=== PATIENT | female | born 1990 | race Caucasian/White ===

== ENCOUNTER 2016-08-03 20:42 | Inpatient (IN) | payer OTHER ==
[~2016-08-03] VITALS: Ht 162.6 cm; Wt 77.3 kg
[~2016-08-03 20:42] MED LIST: PRENTAB26 PO
[2016-08-03] MEDS ORDERED: LACTATED RINGER'S 1000ML 1,000 ML IV PRN (20:55)
[2016-08-03] MEDS ORDERED: LACTATED RINGER'S 1000ML 1,000 ML IV SCH ×2 (20:55→22:51)
[2016-08-03] MEDS ORDERED: OXYTOCIN 30 UNITS/500ML NSS IV ONE (21:25)
[2016-08-03 21:28] LABS: HEMATOCRIT 37.1 % (37-47); MEAN CELL VOLUME 84.5 fL (80-100); MEAN CORPUSCULAR HEMOGLOBIN 28.2 pg (25-34); MEAN CORPUSCULAR HGB CONC 33.4 g/dl (32-36); MEAN PLATELET VOLUME 10.9 fL (7.4-10.4); PLATELET COUNT 266 K/uL (130-400); RED BLOOD COUNT 4.39 M/uL (4.2-5.4); WHITE BLOOD COUNT 13.89 K/uL (4.8-10.8)
[2016-08-03] MEDS ORDERED: BUTORPHANOL TARTRATE 1 MG/ML VIAL ONE (22:02)
[2016-08-03] MEDS ORDERED: IBUPROFEN 600 MG TAB ONE (22:45)
[2016-08-03] MEDS ORDERED: BUTORPHANOL TARTRATE 1 MG/ML VIAL IV STA (22:57)
[2016-08-03] MEDS ORDERED: OXYTOCIN 30 UNITS/500ML NSS IV PRN (23:00)
[2016-08-03] MEDS ORDERED: HYDROCORTISONE ACETATE 25 MG SUPP PR PRN (23:00)
[2016-08-03] MEDS ORDERED: SUPERCREAM 0.870 % 15GM JAR EXT PRN (23:00)
[2016-08-03] MEDS ORDERED: LANOLIN OINT EXT PRN ×2 (23:00)
[2016-08-03] MEDS ORDERED: BENZOCAINE 20% AER SPR 82.5 GM CAN EXT PRN (23:00)
[2016-08-03] MEDS ORDERED: OXYCODONE/ACETAMINOPHEN 5-325 TAB PO PRN (23:00)
[2016-08-03] MEDS ORDERED: ACETAMINOPHEN 325 MG TAB PO PRN (23:00)
[2016-08-03] MEDS ORDERED: ASCO100T (23:53)
[2016-08-03] MEDS ORDERED: CHOL1000 PO (23:53)
[2016-08-03 23:56] VITALS: Ht 162.6 cm; Wt 77.3 kg
[2016-08-04] VITALS (7 sets, daily range): BP systolic 103–135; BP diastolic 57–77; PULSE 53–86; TEMP 36.2–36.8; O2SAT 97–98
--- NOTE | 2016-08-04 00:01 | DELIVERY SUMMARY ---
DATE OF OPERATION: 08/03/2016 TIME OF DELIVERY OF BABY: 2156. TIME OF DELIVERY OF PLACENTA: 2226. DETAILS OF ADMISSION AND DELIVERY: The patient is a 26-year-old G3, P 1-0-0-1, at 40 weeks and 2 days of gestation, who presented to labor and delivery in active labor at 7 cm, 80%, 0 station, with bulging membranes. She progressed to full dilatation very quickly and desired to push. See below for details of delivery. Her has been complicated by (1) history of depression, no current issues, (2) hepatitis C positive, Chronic hepatitis C carrier. (3) tobacco use. (4) Abnormal findings on screening, increased risk of Down syndrome from quad screening. She had MFM referral and normal ultrasound. She declined more testing. Her GBS was negative. Her contractions started about an hour ago before she presented to L&D. She denies LOF or VB. She reported good movements. Upon admission to labor and delivery, heart rate was 130s, category 1, she was having contractions every 2-3 minutes. She progressed to fully dilatation and desired to push. There were bulging membranes which were ruptured and clear fluid was obtained. Right after that, the patient pushed once and delivered the head over an intact perineum. Shoulders were delivered with minimal traction. Baby was handed off to the mother where mouth and nose were suctioned. Cord was clamped x2 and cut, it was a 3-vessel cord, and then cord blood was obtained. Vagina and perineum were checked for lacerations. There was a very small 1 cm first-degree laceration on the right labia minor, which was not bleeding, the patient declined repair. Rest of the vagina and perineum were intact. The patient was very painful at that point, desired pain medication. She was given 2 grams of Stadol IV for pain control. Placenta was attached for about 30 minutes, and at 10:27 p.m., placenta was found to be in the vagina, delivered spontaneously, intact and complete. Uterus was explored and found to be some pieces of membranes in the lower uterine segment, which were removed manually without difficulty and then the rest of the uterus was empty. Lower segment was cleared off all clots and debris. Fundus was firm. EBL was 300. Mother and baby tolerated the procedure well. Baby was a viable male infant, Apgars 9/9, weight is pending. No complications happened. I was present during whole procedure. I attest to the content of the Intraoperative Record and any orders documented therein. Any exceptions are noted below. MTDD
[2016-08-04] MEDS: IBUPROFEN 600 MG TAB PO PRN ×3 (06:37→19:38)
[2016-08-04 07:06] LABS: HEMATOCRIT 33.2 % (37-47)
[2016-08-04] MEDS: PRENATAL VITAMIN TAB PO SCH (08:56)
[2016-08-04] MEDS: DOCUSATE SODIUM 100 MG CAP PO SCH ×2 (08:56→19:37)
[2016-08-04] MEDS: FERROUS SULFATE 325 MG TAB PO SCH (08:56)
[2016-08-04] MEDS ORDERED: MEASLES, MUMPS & RUBELLA VIRUS VIAL SQ. ONE (09:00)
[2016-08-04] MEDS ORDERED: DIPHTHERIA/TETANUS/PERTUSSIS 0.5 ML SYR/VIAL IM. ONE (09:00)
--- NOTE | 2016-08-04 09:05 | OB/GYN Progress Note ---
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 Patient is seen and examined. She feels well, no complaints. Ambulating without dizziness Voiding without difficulty Tolerating regular diet with out N&V Bleeding is minimal No fever/ chills/ CP/ SOB/ N&V/ Leg pain Breast feeding without problems Date Time Temp Pulse Resp B/P Pulse Ox O2 Delivery O2 Flow Rate FiO2 08/04/16 08:10 98 Room Air 08/04/16 08:10 36.8 78 16 120/65 98 Room Air 08/04/16 04:45 36.8 85 18 103/57 Room Air 08/04/16 00:45 36.2 73 17 135/77 Room Air 08/04/16 00:45 Room Air Last 24 Hours Test 08/03/16 21:10 08/04/16 06:34 White Blood Count 13.89 K/uL Red Blood Count 4.39 M/uL Hemoglobin 12.4 g/dL 11.3 g/dL Hematocrit 37.1 % 33.2 % Mean Corpuscular Volume 84.5 fL Mean Corpuscular Hemoglobin 28.2 pg Mean Corpuscular Hemoglobin Concent 33.4 g/dl RDW Standard Deviation 44.6 fL RDW Coefficient of Variation 14.3 % Platelet Count 266 K/uL Mean Platelet Volume 10.9 fL PE: General: Alert, orientedx3, NAD Abd: soft, NT, fundus firm, below Umbilicus Perineum intact, Lochia rubra minimal Ext; NT, no edema AP: 26 yo s/p , ppd# 1 VSS Afebrile doing well Continue routine care All questions were answered D/C home in am
[2016-08-04] MEDS ORDERED: BISACODYL 5 MG TABEC PO SCH (20:00)
[2016-08-05 06:58] LABS: HEMATOCRIT 33.3 % (37-47); MEAN CELL VOLUME 84.3 fL (80-100); MEAN CORPUSCULAR HEMOGLOBIN 27.6 pg (25-34); MEAN CORPUSCULAR HGB CONC 32.7 g/dl (32-36); PLATELET COUNT 266 K/uL (130-400); RED BLOOD COUNT 3.95 M/uL (4.2-5.4); WHITE BLOOD COUNT 11.48 K/uL (4.8-10.8)
[2016-08-05] MEDS ORDERED: BISACODYL 10 MG SUPP PR PRN (07:00)
[2016-08-05 07:30] VITALS: BP 121/78; PULSE 61; TEMP 36.7
[2016-08-05] MEDS: PRENATAL VITAMIN TAB PO SCH (07:35)
[2016-08-05] MEDS: DOCUSATE SODIUM 100 MG CAP PO SCH (07:35)
[2016-08-05] MEDS: FERROUS SULFATE 325 MG TAB PO SCH (07:35)
[2016-08-05] MEDS: IBUPROFEN 600 MG TAB PO PRN (07:35)
[2016-08-05 08:05] VITALS: BP_DIAS 78; PULSE 61; TEMP 36.7
--- NOTE | 2016-08-05 08:39 | OB/GYN Progress Note ---
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 Subjective conversation w/ patient, physical exam Ambulation: ambulating normally Voiding: no voiding problems Passing Gas: Yes Diet Tolerance: Regular Diet Lochia: Moderate Feeding Type: Breast Feeding Review of Systems Constitutional: No chills, No fatigue, No fever, No problem reported, No sweats , No weakness, No weight loss Respiratory: No cough, No dyspnea at rest, No dyspnea on exertion, No hemoptysis, No problem reported, No shortness of breath, No sputum, No wheezing Cardiac: No PND, No chest pain, No claudication, No edema, No orthopnea, No palpitations, No problem reported Breast: No breast lump, No breast pain, No change in shape, No nipple discharge , No problem reported, No see HPI Abdomen: No GI bleeding, No constipation, No diarrhea, No nausea, No pain, No problem reported, No vomiting Female : No abnormal vaginal bleeding, No dysuria, No hematuria, No incontinence, No problem reported, No see HPI, No urinary frequency, No vaginal discharge VD day #2 pt doing well disch home with instructions Objective Vital Signs Date Time Temp Pulse Resp B/P Pulse Ox O2 Delivery O2 Flow Rate FiO2 08/05/16 07:30 36.7 61 20 121/78 Room Air 08/04/16 23:40 98 Room Air 08/04/16 23:40 36.7 53 18 120/67 98 Room Air 08/04/16 19:30 36.8 76 16 115/75 Room Air 08/04/16 15:30 36.7 82 18 116/65 97 Room Air 08/04/16 15:30 97 Room Air 08/04/16 11:15 36.8 86 18 112/65 97 Room Air 08/04/16 11:15 97 Room Air Laboratory Results Last 24 Hours Test 08/05/16 06:01 White Blood Count 11.48 K/uL Red Blood Count 3.95 M/uL Hemoglobin 10.9 g/dL Hematocrit 33.3 % Mean Corpuscular Volume 84.3 fL Mean Corpuscular Hemoglobin 27.6 pg Mean Corpuscular Hemoglobin Concent 32.7 g/dl RDW Standard Deviation 44.4 fL RDW Coefficient of Variation 14.5 % Platelet Count 266 K/uL Mean Platelet Volume 11.0 fL
[2016-08-05] MEDS ORDERED: MTR600X PO (08:41)
--- NOTE | 2016-08-05 08:42 | Discharge Instructions ---
Discharge Instructions Admission Reason for Admission: Check Labor Discharge Discharge Diagnosis / Problem: post Discharge Goals Goal(s): Continuing OB care Activity Recommendations Activity Limitations: as noted below Lifting Limitations: gradually increase as tolerated Exercise/Sports Limitations: until after follow-up appointment May Resume Sexual Activity: after follow-up appointment Driving or Machine Use: ACTIVITY RECOMMENDATIONS: * Gradual return to full activity over the next 2-3 weeks. * No lifting - nothing heavier than baby over the next 2-3 weeks. * Do not engage in vigorous exercise, sexual activity or sports until cleared by your physician. * Do not drive or operate any motorized equipment until cleared by your physician. * You may shower/bathe daily. BREAST CARE: If you are not breast feeding: * Wear a supportive bra 24 hours a day for one to two weeks. * Avoid stimulating your breasts and nipples as much as possible during the first few weeks after delivery. * When taking a shower, have the warm water hit your back, not breasts. * When your breasts feel full, apply ice packs. Usually three to four times a day helps ease the discomfort. * Take a mild pain medication (Tylenol/Motrin) when you are uncomfortable. If breast feeding: * Use breast milk to lubricate nipples. Lansinoh cream may be used for sore nipples. You do not need to remove cream prior to breast feeding. If using a different brand of cream, check the label for directions regarding removal of cream prior to nursing. * Wear a supportive bra. * If having problems with breasts or breast feeding, call a alliances consultant or your health care provider. EPISIOTOMY CARE: After delivery, if you have an episiotomy (stitches), the following steps will ease discomfort and aid healing. * For the first 24 hours after delivery, place ice packs next to your episiotomy to help reduce swelling. * After the first 24 hour-period, sitz baths, either portable or in the tub, are suggested. A shower with a shower arm sprayed over the episiotomy may be comforting. * Maia care should be done after each voiding and bowel movement. Squirt warm water from a plastic bottle over the perineum (region of the body between the anus and urinary opening) and pat dry. * Use Dermoplast to ease discomfort. Shake container. [place] directly over the episiotomy. * Place a Tucks on a clean sanitary pad next to your episiotomy. OVER THE COUNTER MEDICATION: * For discomfort or pain, you may use Acetaminophen (Tylenol), Ibuprofen (Advil ), or Naproxen (Aleve) following the package directions. * For constipation you may use Colace following the package directions. SPECIAL CARE INSTRUCTIONS: When you are discharged from the hospital, it is important for you to follow the instructions listed below: * During the first week at home, you should be able to care for yourself and your baby. In addition, the usual light household activities are encouraged. * Limit your activities to the way you feel. Do not try to clean the house or move furniture. Be sensible. * If you actively engage in sports and have done so up until the time of your delivery, you may resume these activities as soon as you feel able. This may take up to one month or even longer. Use good judgment. * Continue to take your vitamins for at least six weeks after the of your baby. * Your diet need not be limited unless you were on a special diet before your delivery. Breast-feeding mothers need around 2500 calories per day and at least 64-80 ounces of fluid per day (8 to 10 glasses). * You should eat foods from the four major food groups. Crash diets or fad diets are to be avoided. Eating lean meats, fresh fruits and vegetables, low-fat dairy products, high fiber foods and a regular exercise program, will help you get back to your pre- weight without putting your health at risk. * Constipation is sometimes a problem after delivery. Take a mild laxative as needed. If breast feeding, Milk of Magnesia is acceptable to use. You may use a suppository or Fleets enema if no episiotomy. * A daily shower or tub bath is suggested. Be sure to thoroughly and gently dry the perineum. * A bloody vaginal discharge will usually continue until around four weeks post . A small amount of bleeding may continue for as long as six weeks. Vaginal discharge changes from the bright red bleeding after delivery to pink then brownish and finally yellowish-pink before becoming white and disappearing. * Bleeding may increase with activity. Your first period may come in 4-8 weeks. If you are breast feeding, your period may be delayed even longer. * [place] (sex) can begin whenever both you and your partner feel comfortable and do not have any form of genital infection. It is recommended that you wait until after your return appointment and discuss with your physician. If you have questions, please talk to your health care practitioner. A condom should be used to prevent infection and . * Foreplay, gentle intercourse and lubrication is very important the first several times to prevent pain. A water-based lubricant such as K-Y jelly or Astroglide may be used. * Tampons may be used six weeks after delivery. * Douching should be avoided for 6 weeks after delivery. * If you have RH negative blood and your baby is RH positive, you will receive RHOGAM by injection prior to discharge. The nurse will give you a card to keep with you that has the date and place that you received RHOGAM after delivery. * During your care, you had a Rubella screen done to check for the presence of rubella antibodies in your blood. If your test was negative, you will receive a Rubella vaccine prior to discharge. This vaccine may cause a fever, soreness at the injection site and flu-like symptoms. If these symptoms persist, notify your health care practitioner. is not advised for three months after a Rubella vaccine. There is a higher chance of having a baby with defects if conceived within three months of getting the vaccine. * If you were discharged 24 hours from delivery or before 48 hours: Visiting nurses will come to your home 48 hours after discharge to assess you and your baby. The visiting nurse will meet with you while you are in the hospital to arrange a time and get directions to your home. * Verbalizes understanding of car seat law as reviewed with patient nursing. * Car Seat hand-out given and reviewed with patient by nursing. * Shaken baby information reviewed with patient by nursing. Call you doctor if: * Heavy bleeding (saturating several pads an hour) or passing clots the size of your fist. * A fever >101 degrees F (38.3 degrees C) on two occasions four hours apart and/or chills. * Unusual pain in the pelvic or vaginal areas. * "Baby Blues" lasting longer than two weeks. If you have any questions or concerns, call your health care practitioner at . FOLLOW-UP VISIT: * Please call the office at to schedule a 6 week examination. It is important you keep this appointment. * It is important for you to make arrangements for either yearly or twice yearly check-ups thereafter. . Current Hospital Diet Patient's current hospital diet: Regular OB Diet Discharge Diet Recommended Diet: Regular Diet Pending Studies Studies pending at discharge: no Medical Emergencies . Who to Call and When: Medical Emergencies: If at any time you feel your situation is an emergency, please call 911 immediately. . Non-Emergent Contact Non-Emergency issues call your: Specialist Call Non-Emergent contact if: you have a fever, your pain is not controlled, wound has increased drainage . . "Provider Documentation" section prepared by Dhruv He. VTE Core Measure Inpt VTE Proph given/why not?: Treatment not indicated
== END 2016-08-05 11:55 | disposition home or self-care (01) | DRG 774 ==
LOC: C.OPB 20:42 → C.LD 20:42 → C.OPB 21:00 → C.OBG 08-04 00:57
PROVIDERS: ADMIT Obstetrics & Gynecology; ATTEND Obstetrics & Gynecology
PROC: 10E0XZZ Delivery of Products of Conception, External Approach (ICD-10-PCS; principal; 2016-08-03)
DX: O70.0 First degree perineal laceration during delivery (principal); O98.413 Viral hepatitis complicating pregnancy, third trimester; O99.333 Smoking (tobacco) complicating pregnancy, third trimester; B18.2 Chronic viral hepatitis C; Z3A.40 40 weeks gestation of pregnancy; Z37.0 Single live birth

== ENCOUNTER 2020-06-28 18:40 | Observation (INO) ==
[2020-06-28] MEDS ORDERED: ONDANSETRON INJ 2 MG/ML 2 ML VIAL IV STA (19:09)
[2020-06-28] MEDS ORDERED: ceFAZolin 1000MG 1,000 MG/7.5 ML SYR IV ONE (19:12)
[2020-06-28] MEDS ORDERED: SODIUM CHLORIDE 0.9% 1000ML 1,000 ML IV SCH (19:15)
--- NOTE | 2020-06-28 19:25 | History & Physical Report ---
Date of Service June 28, 2020 Assessment & Plan (1) Hematoma: On clinical examination, this is consistent with hematoma, likely with still active bleeding. Discussed return to operating room for evacuation of hematoma of left breast. Discussed possible risks including bleeding, infecti on, poor wound healing, nipple necrosis, further surgery. Consent obtained. We will plan to observe overnight postoperatively. Did discuss possibility of transfusion depending on postoperative H&H. History of Present Illness Primary Care Provider: Alden Hilario contacted the answering service this evening with a complaint of rapidly enlarging left breast, increased drainage and pain from the left breast, and lightheadedness. She is about 7 hours status post bilateral reduction mamm oplasty. She was seen by Tammy at the time of discharge, noted to have viable nipple areolar complexes. Allergies Allergy/AdvReac Type Severity Reaction Status Date / Time nut - unspecified Allergy Severe ANAPHYLAXIS Verified 06/28/20 06:20 shellfish derived Allergy Severe ANAPHYLAXIS Verified 06/28/20 06:20 animal dander Allergy Mild itchy eyes Verified 06/28/20 06:20 pollen extracts Allergy Mild itchy eyes Verified 06/28/20 06:20 ragweed pollen Allergy Mild itchy eyes Verified 06/28/20 06:20 Home Medications Medication Instructions Recorded Confirmed Type ondansetron HCl [Zofran] 4 mg PO Q6H PRN 3 Days #12 tab 06/28/20 Rx tramadol 100 mg tablet 100 mg PO Q6H PRN #14 tab 06/28/20 Rx Past Med/Surg History Medical History Asthma A CHILD-NO INHALERS Chronic back pain History of seasonal allergies Surgical History Hx of breast surgery BILAT 2012 Family History Other Breast cancer Social History (Updated 04/12/20 @ 10:22 by Tommy Guaman) Smoking Status: Never smoker Cigarettes Per Day: USED TO TRY SMOKE 4-6 CIGS A DAY X 15 YRS; Second Hand Exposure: Yes (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); Hx Alcohol Use: Yes Alcohol type: beer, wine and hard liquor Alcohol Intake Frequency: 2-3 x/Week Hx Substance Use: No Preferred Language: Romansh Communication Ability: Effective 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 Drain has drained about 60 cc over the last few minutes, bright red Results & Data Results & Data ([facility]) Vital Signs (Past 12 Hours) Vital Signs Temp Pulse Resp BP Pulse Ox 06/28/20 18:42 97.7 F 58 L 16 127/70 100 Laboratory studies not available yet
--- NOTE | 2020-06-28 19:35 | Emergency Department Note ---
Impression & Plan Postoperative hemorrhage ED Provider Note INFORMANT: Patient ED PROVIDER(S): Bartolo Romero MD CHIEF COMPLAINT: Postoperative bleeding PLAN: Disposition: Taken directly to the OR for operative management Condition: Good MEDICAL DECISION MAKING: Patient presented back to emergency department because of postoperative bleeding. Her left breast was significantly swollen and she had a significant amount of blood drainage from her SHELLEY drain. Her surgeon, Dr. Patricio, met her in the emergency department. We discussed her presentation and findings. She evaluated patient and felt operative exploration and hemorrhage control would be necessary. The patient was in agreement. I did treat her with normal saline, Dilaudid, and Zofran for symptom control. Blood work was obtained. IV Ancef was given. CBC showed a moderate leukocytosis. Her H&H was mildly low. Chemistry panel unremarkable. Triage Nursing notes reviewed and agree them. Prior medical records reviewed regarding her operative report. Vital Signs: reviewed and remarkable for no significant abnormalities Differential diagnosis: Venous bleeding, arterial bleeding, foreign body, dehiscence, infection, soft tissue injury, as well as other pathologies. Diagnostics interpreted by me: Cardiac Monitoring: Cardiac monitoring ordered by me: The patient was placed on continuous cardiac monitoring and observed. It revealed a normal sinus rhythm at 61 beats per minute without ectopy or evidence of dysrhythmia. Imaging studies: Deferred Consultation(s): Dr. Patricio, plastic surgery HPI: The patient is a 30 year old female who presents to the Emergency Room with complaints of postoperative bleeding. This started this afternoon and is from the left breast. The patient also notes the following associated symptoms, feeling lightheaded and dizzy when standing. The patient has found no relieving factors. Current pain is rated as 6/10. Patient had breast reduction done by Dr. Patricio today. She noted that she initially had 20 cc in her SHELLEY drain, then had 30 the next time she drained it, and then on presentation to the emergency department there was 60 cc present. Prior to arrival to ER she did contact Dr. Patricio's nurse and was directed to the ER for further management. She does note a mild sore throat from intubation otherwise is without complaints. Pt denies LOC, headache, fevers, chills, diaphoresis, visual changes, neck pain, chest pain, breathing difficulties, nausea, vomiting, abdominal pain, back pain, numbness, weakness, lymphadenopathy, rash, or other complaints. ROS: See above HPI for pertinent positives & negatives. A total of 10 systems reviewed and were otherwise negative. PAST MEDICAL HISTORY:See Below, PAST SURGICAL HISTORY:See Below, FAMILY HISTORY:See Below SOCIAL HISTORY:See Below, HOME MEDICATIONS:See Below ALLERGIES:See Below VITALS:See Below PHYSICAL EXAMINATION: GENERAL: Awake, alert, uncomfortable-appearing, in no distress HENT: Normocephalic, atraumatic. Oropharynx unremarkable. EYES: Normal conjunctiva. Sclera non-icteric. NECK: Inspection normal. Non-tender. Supple. No nuchal rigidity. FROM. No masses. RESPIRATORY: Clear to auscultation. No wheezes. No rales. Normal respiratory effort. CARDIAC: Normal rate. Normal rhythm. No murmurs. No rubs. Extremities warm and well perfused. Pulses equal. No JVD. GI: Soft, non-distended. No tenderness to palpation. No rebound or guarding. No masses. RECTAL: Deferred. MUSCULOSKELETAL: Atraumatic. Chest examination reveals bilateral breast tenderness. Left breast is much larger than the right. There is a SHELLEY drain present and there is gross blood in the bottle. 60 mL measured. The back is symmetrical on inspection without obvious abnormality. There is no CVA tenderness to palpation. No joint edema. LOWER EXTREMITIES: Calves are equal size bilaterally and non-tender. No edema. No discoloration. NEURO: Normal sensorium. No sensory or motor deficits noted. SKIN: No rash or jaundice noted. Bartolo Romero MD Past Med/Surg History Medical History (Updated 06/28/20 @ 20:50 by Dominic Betancourt MD) Asthma A CHILD-NO INHALERS Chronic back pain Hepatitis C History of seasonal allergies Surgical History Hx of breast surgery BILAT 2012 Family History Other Breast cancer Social History (Updated 04/12/20 @ 10:22 by Tommy Guaman) Smoking Status: Never smoker Cigarettes Per Day: USED TO TRY SMOKE 4-6 CIGS A DAY X 15 YRS; Second Hand Exposure: Yes (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); Hx Alcohol Use: Yes Alcohol type: beer, wine and hard liquor Alcohol Intake Frequency: 2-3 x/Week Hx Substance Use: No Preferred Language: Chinese Communication Ability: Effective Electronics Worker Required: No Beliefs That Will Affect Care: None Current Living Situation: Significant Other Feels Safe at Home: Yes Sunscreen Use: Yes Assistive Devices: Glasses Allergies Allergies Allergy/AdvReac Type Severity Reaction Status Date / Time nut - unspecified Allergy Severe ANAPHYLAXIS Verified 06/28/20 06:20 shellfish derived Allergy Severe ANAPHYLAXIS Verified 06/28/20 06:20 animal dander Allergy Mild itchy eyes Verified 06/28/20 06:20 pollen extracts Allergy Mild itchy eyes Verified 06/28/20 06:20 ragweed pollen Allergy Mild itchy eyes Verified 06/28/20 06:20 Home Meds Previous Rx's Medication Instructions Recorded ondansetron HCl [Zofran] 4 mg PO Q6H PRN 3 Days #12 tab 06/28/20 tramadol 100 mg tablet 100 mg PO Q6H PRN #14 tab 06/28/20 Results & Data (ED) Vital Signs Vital Signs - 24 hr 06/28/20 18:42 06/28/20 19:38 06/28/20 20:17 Temperature 36.5 C Temperature Source Oral Pulse Rate 58 L Pulse Rate [Right Finger] 48 L 54 L Respiratory Rate 16 19 19 Blood Pressure 127/70 Blood Pressure [Right Arm] 110/62 127/75 Blood Pressure Mean 89 Blood Pressure Mean [Right Arm] 78 92 Pulse Oximetry 100 98 97 Sepsis Recent Fever Within 48 Hours No Sepsis New/Unexplained Change in Mental Status No Sepsis Action Taken by Nursing No Action Required Laboratory Data Result diagrams: 06/28/20 19:20 06/28/20 19:20 Lab Results 06/28/20 06/28/20 06/28/20 Range/Units 19:20 19:20 19:20 WBC 19.98 H (4.8-10.8) K/uL RBC 4.37 (4.2-5.4) M/uL Hgb 11.5 L (12.0-16.0) g/dL Hct 35.5 L (37-47) % MCV 81.2 (80-100) fL MCH 26.3 (25-34) pg MCHC 32.4 (32-36) g/dL RDW Std Deviation 44.1 (36.4-46.3) fL RDW Coeff of Arun 14.9 H (11.5-14.5) % Plt Count 346 (130-400) K/uL MPV 10.6 H (7.4-10.4) fL Immature Gran % (Auto) 0.3 % Neut % (Auto) 85.4 % Lymph % (Auto) 5.4 % Letcher % (Auto) 8.8 % Eos % (Auto) 0.0 % Baso % (Auto) 0.1 % Neut # (Auto) 17.08 H (1.4-6.5) K/uL Lymph # (Auto) 1.08 L (1.2-3.4) K/uL Letcher # (Auto) 1.75 H (0.11-0.59) K/uL Eos # (Auto) 0.00 (0-0.5) K/uL Baso # (Auto) 0.02 (0-0.2) K/uL Immature Gran # (Auto) 0.05 H (0.00-0.02) K/uL PT 11.7 (9.0-12.0) Seconds INR 1.1 (0.9-1.1) APTT 25.6 (21.0-31.0) Seconds PTT Ratio 0.9 Sodium (136-145) mmol/L Potassium (3.5-5.1) mmol/L Chloride (98-107) mmol/L Carbon Dioxide (21-32) mmol/L Anion Gap (3-11) BUN (7-18) mg/dl Creatinine (0.6-1.2) mg/dl Est Cr Clr Drug Dosing ml/min Est GFR ( Amer) Est GFR (Non-Af Amer) BUN/Creatinine Ratio (10-20) Glucose (70-99) mg/dl Calcium (8.5-10.1) mg/dl Total Bilirubin (0.2-1) mg/dl AST (15-37) U/L ALT (12-78) U/L Alkaline Phosphatase (45-117) U/L Total Protein (6.4-8.2) gm/dl Albumin (3.4-5.0) gm/dl Globulin (2.5-4.0) gm/dl Albumin/Globulin Ratio (0.9-2) Blood Type O Positive Antibody Screen NEGATIVE 11/30/20 Range/Units 19:20 WBC (4.8-10.8) K/uL RBC (4.2-5.4) M/uL Hgb (12.0-16.0) g/dL Hct (37-47) % MCV (80-100) fL MCH (25-34) pg MCHC (32-36) g/dL RDW Std Deviation (36.4-46.3) fL RDW Coeff of Arun (11.5-14.5) % Plt Count (130-400) K/uL MPV (7.4-10.4) fL Immature Gran % (Auto) % Neut % (Auto) % Lymph % (Auto) % Letcher % (Auto) % Eos % (Auto) % Baso % (Auto) % Neut # (Auto) (1.4-6.5) K/uL Lymph # (Auto) (1.2-3.4) K/uL Letcher # (Auto) (0.11-0.59) K/uL Eos # (Auto) (0-0.5) K/uL Baso # (Auto) (0-0.2) K/uL Immature Gran # (Auto) (0.00-0.02) K/uL PT (9.0-12.0) Seconds INR (0.9-1.1) APTT (21.0-31.0) Seconds PTT Ratio Sodium 135 L (136-145) mmol/L Potassium 4.1 (3.5-5.1) mmol/L Chloride 103 (98-107) mmol/L Carbon Dioxide 27 (21-32) mmol/L Anion Gap 6.0 (3-11) BUN 9 (7-18) mg/dl Creatinine 0.66 (0.6-1.2) mg/dl Est Cr Clr Drug Dosing 105.7 ml/min Est GFR ( Amer) 135.5 Est GFR (Non-Af Amer) 116.9 BUN/Creatinine Ratio 14.2 (10-20) Glucose 151 H (70-99) mg/dl Calcium 8.7 (8.5-10.1) mg/dl Total Bilirubin 0.5 (0.2-1) mg/dl AST 21 (15-37) U/L ALT 48 (12-78) U/L Alkaline Phosphatase 53 (45-117) U/L Total Protein 6.9 (6.4-8.2) gm/dl Albumin 3.5 (3.4-5.0) gm/dl Globulin 3.4 (2.5-4.0) gm/dl Albumin/Globulin Ratio 1.0 (0.9-2) Blood Type Antibody Screen Administered Medications Hydromorphone HCl (Hydromorphone Inj 0.5 Mg/0.5 Ml Syr) 0.5 mg IV Q15M PRN PRN Reason: Pain Last Admin: 06/28/20 19:38 Dose: 0.5 mg Documented by: [id number] Discontinued Medications Sodium Chloride (Nss 1000ml) 1,000 mls @ 999 mls/hr IV .Q1H1M ROSA Stop: 06/28/20 20:15 Last Admin: 06/28/20 19:38 Dose: 999 mls/hr Documented by: [id number] Cefazolin Sodium (Ancef 1000mg) 1,000 mg in 7.5 mls @ 2.5 mls/min IV PREOP ONE Stop: 06/28/20 19:14 Last Admin: 06/28/20 19:38 Dose: 2.5 mls/min Documented by: [id number] Ondansetron HCl (Ondansetron Inj 2 Mg/Ml 2 Ml Vial) 4 mg IV ONE STA Stop: 06/28/20 19:10 Last Admin: 06/28/20 19:38 Dose: 4 mg Documented by: [id number] Discharge Plan Visit Data Chief Complaint: Breast Pain/Problems Stated Complaint: L BREAST SWELLING/BLEEDING ED Provider: Bartolo Romero Discharge Problem: Postoperative hemorrhage Patient Disposition: Still a Patient Discharge Instructions Interventions: ED Discharge Assessment Last Done: 06/28/20 20:21
[2020-06-28] MEDS: HYDROmorphone INJ 0.5 MG/0.5 ML SYR IV PRN (19:38)
[2020-06-28 19:47] LABS: Basophils # (auto) 0.02 K/uL (0-0.2); Basophils % (auto) 0.1 %; Hematocrit (blood only) 35.5 % (37-47); Hemoglobin 11.5 g/dL (12.0-16.0); Immature Granulocytes # (auto) 0.05 K/uL (0.00-0.02); Immature Granulocytes % (auto) 0.3 %; Lymphocytes # (auto) 1.08 K/uL (1.2-3.4); Lymphocytes % (auto) 5.4 %; Mean Corpuscular Hemoglobin 26.3 pg (25-34); Mean Corpuscular Hgb Conc 32.4 g/dL (32-36); Mean Corpuscular Volume 81.2 fL (80-100); Mean Platelet Volume 10.6 fL (7.4-10.4); Monocytes # (auto) 1.75 K/uL (0.11-0.59); Monocytes % (auto) 8.8 %; Neutrophils # (auto) 17.08 K/uL (1.4-6.5); Neutrophils % (auto) 85.4 %; Platelet Count 346 K/uL (130-400); RDW Coefficient of Variation 14.9 % (11.5-14.5); RDW Standard Deviation 44.1 fL (36.4-46.3); Red Blood Count 4.37 M/uL (4.2-5.4); White Blood Count 19.98 K/uL (4.8-10.8)
[2020-06-28 20:03] LABS: Albumin Level 3.5 gm/dl (3.4-5.0); BUN Creatinine Ratio 14.2 (10-20); Calcium 8.7 mg/dl (8.5-10.1); Creatinine Clr Calc Pharmacy 105.7 ml/min; Est GFR (African American) 135.5; Est GFR (Non-African American) 116.9; Potassium 4.1 mmol/L (3.5-5.1)
[2020-06-28] MEDS ORDERED: BACITRACIN INJ 50,000 UNIT VIAL ONE (20:03)
[2020-06-28 20:06] LABS: Bilirubin,Total 0.5 mg/dl (0.2-1); Globulin 3.4 gm/dl (2.5-4.0); Total Protein 6.9 gm/dl (6.4-8.2)
[2020-06-28 20:09] LABS: INR 1.1 (0.9-1.1); Partial Thromboplastin Ratio 0.9; Partial Thromboplastin Time 25.6 Seconds (21.0-31.0); Prothrombin Time 11.7 Seconds (9.0-12.0)
[2020-06-28] MEDS ORDERED: fentaNYL citrate 100 MCG/2 ML VIAL ONE (20:46)
[2020-06-28] MEDS ORDERED: MIDAZOLAM HCL 1 MG/ML 2ML VIAL ONE (20:46)
[2020-06-28] MEDS ORDERED: ATROPINE SULFATE 0.1 MG/ML 10ML SYR IV PRN (20:48)
[2020-06-28] MEDS ORDERED: ONDANSETRON INJ 2 MG/ML 2 ML VIAL IV PRN (20:48)
[2020-06-28] MEDS ORDERED: ePHEDrine sulfate 50 MG/ML AMP IV PRN (20:48)
[2020-06-28] MEDS ORDERED: HYDROmorphone INJ 1 MG/ML SYRINGE IV PRN (20:48)
[2020-06-28] MEDS ORDERED: fentaNYL citrate 100 MCG/2 ML VIAL IV PRN (20:48)
--- NOTE | 2020-06-28 20:51 | Anesthesiology Consultation ---
Date of Service June 28, 2020 Assessment & Plan (1) Encounter for pre-operative examination: Chart Review Chart Review: Acceptable Risk for Surgery and Patient NOT seen in Pre Admission Testing Consults Requested none History Surgery Operation Date: 06/28/20 21:30 Proposed Procedures p Evacuation Hematoma of Left Breast(Left) - Ruby Patricio MD Height/Weight Height: 5 ft 4 in Weight: 60.3 kg Allergies Allergy/AdvReac Type Severity Reaction Status Date / Time nut - unspecified Allergy Severe ANAPHYLAXIS Verified 06/28/20 06:20 shellfish derived Allergy Severe ANAPHYLAXIS Verified 06/28/20 06:20 animal dander Allergy Mild itchy eyes Verified 06/28/20 06:20 pollen extracts Allergy Mild itchy eyes Verified 06/28/20 06:20 ragweed pollen Allergy Mild itchy eyes Verified 06/28/20 06:20 Medications Home Medications Medication Instructions Recorded Confirmed Last Taken ondansetron HCl [Zofran] 4 mg PO Q6H PRN 3 Days #12 tab 06/28/20 06/28/20 Unknown tramadol 100 mg tablet 100 mg PO Q6H PRN #14 tab 06/28/20 06/28/20 Unknown Active Medications Generic Name Dose Route Start Last Admin Trade Name Freq PRN Reason Stop Dose Admin Hydromorphone HCl 0.5 mg 06/28/20 19:09 06/28/20 19:38 Hydromorphone Inj 0.5 Mg/0.5 Ml Syr IV 0.5 mg Q15M PRN Administration Pain NPO Date Last Intake of Fluids: 06/28/20 Time Last Intake of Fluids: 18:00 Date Last Intake of Solids: 06/28/20 Time Last Intake of Solids: 17:00 Past Medical History Medical History (Updated 06/28/20 @ 20:50 by Dominic Betancourt MD) Asthma A CHILD-NO INHALERS Chronic back pain Hepatitis C History of seasonal allergies Exercise / Class Metabolic Activity II 4-5 Yardwork/Stairs/Walk up hill Past Family History Family History Other Breast cancer Past Surgical History Surgical History Hx of breast surgery BILAT 2013 b/l breast reduction surgery 06/28/2020 Past Anesthesia History No Hx of Anesthesia Complications and No Family Hx of Anesthesia Complications History of PONV No Hx of PONV and No Hx of Motion Sickness Social History Smoking Status: Never smoker Smoking cigarettes per day: USED TO TRY SMOKE 4-6 CIGS A DAY X 15 YRS Hx Alcohol Use: Yes Alcohol type: beer, wine and hard liquor alcohol intake frequency: a few times a month Hx Substance Use: No Physical Exam Vital Signs Last Vital Signs Temp 36.5 C 06/28/20 18:42 Pulse 54 L 06/28/20 20:17 Resp 19 06/28/20 20:17 BP 127/75 06/28/20 20:17 Pulse Ox 97 06/28/20 20:17 Testing Laboratory Results 06/28/20 19:20 06/28/20 19:20 PT 11.7 Seconds (9.0-12.0) 06/28/20 19:20 INR 1.1 (0.9-1.1) 06/28/20 19:20 APTT 25.6 Seconds (21.0-31.0) 06/28/20 19:20
[2020-06-28] MEDS ORDERED: PROPOFOL IV EMULSION 10 MG/ML 20 ML VIAL IV ONE (21:20)
[2020-06-28] MEDS ORDERED: ONDANSETRON INJ 2 MG/ML 2 ML VIAL ONE (21:20)
[2020-06-28] MEDS ORDERED: SUCCINYLCHOLINE CHLORIDE 20 MG/ML 10 ML VIAL IV ONE (21:20)
[2020-06-28] MEDS ORDERED: THROMBIN FOR SOLN 20000 UNIT KIT ONE ×3 (21:43→22:45)
[2020-06-28] MEDS ORDERED: GELATIN SPONGE SZ 100 ONE (22:12)
[2020-06-28] MEDS ORDERED: FLOSEAL HEMOSTATIC MATRIX 5ML TOP ONE (22:15)
[2020-06-28] MEDS ORDERED: FLOSEAL HEMOSTATIC MATRIX 10ML TOP ONE (22:21)
[2020-06-28] MEDS ORDERED: ARISTA ABSORBABLE HEMOSTAT 3GM TOP ONE (22:54)
--- NOTE | 2020-06-29 00:10 | Post Operative Brief Note ---
PG Immediate Post Op with CF Date of Surgery June 29, 2020 Pre & Post Diagnosis Operation Date: 06/28/20 21:30 Pre-Op Diagnosis: LEFT BREAST SWELLING,BLEEDING Post-Op Diagnosis: LEFT BREAST SWELLING,BLEEDING I identified the patient and participated in the time-out.: Yes Procedure Operation Date: 06/28/20 21:30 Actual Procedures p Evacuation Hematoma of Left Breast(Left) - Ruby Patricio MD Surgeon Ruby Patricio MD Die Attaching Machine Tender Ava Vazquez PA-C Estimated Blood Loss 200 (120cc hematoma) Findings Consistent with Post-Op Diagnosis Drains [place] Drain (19Fr. )
[2020-06-29] MEDS: HYDROmorphone INJ 0.5 MG/0.5 ML SYR IV PRN ×2 (00:33→00:53)
--- NOTE | 2020-06-29 01:05 | Anesthesiology Progress Note ---
Date of Service June 29, 2020 Anesthesia Post Procedure Vital Signs Vital Signs: Temp Pulse Pulse Resp BP BP Pulse Ox 06/29/20 00:45 64 17 126/73 100 06/29/20 00:35 82 19 153/87 H 100 06/29/20 00:30 103 H 24 142/78 H 100 06/29/20 00:25 36.6 C 94 H 23 144/77 H 100 06/28/20 20:17 54 L 19 127/75 97 06/28/20 19:38 48 L 19 110/62 98 06/28/20 18:42 36.5 C 58 L 16 127/70 100 Pain Intensity Breast: Pain Intensity: 6 Transfer of Care Handoff Completed per policy Notes Mental Status: alert / awake / arousable and participated in evaluation Patient Amnestic to Procedure: Yes Nausea / Vomiting: adequately controlled Pain: improving with treatment Airway Patency, RR, SpO2: stable & adequate BP & HR: stable & adequate Hydration State: stable & adequate Anesthetic Complications: no major complications apparent and Pt Satisfied with anesthetic care
[2020-06-29] MEDS ORDERED: diphenhydrAMINE 50 MG/ML VIAL IV PRN (01:54)
[2020-06-29] MEDS ORDERED: ONDANSETRON 4 MG OD TAB PO PRN (01:54)
[2020-06-29] MEDS ORDERED: traMADol HCL 50 MG TABLET PO PRN (01:54)
[2020-06-29] MEDS ORDERED: MoRPHine SULFATE 2 MG/ML CARP IV PRN (01:54)
[2020-06-29] MEDS ORDERED: LORazepam 0.5 MG TAB PO PRN (01:54)
[2020-06-29] MEDS ORDERED: diphenhydrAMINE Capsule 25 MG CAP PO PRN (01:54)
[2020-06-29] MEDS ORDERED: D5W AND 1/2NSS + 20MEQ KCL 20 MEQ/1,000 ML BAG IV SCH (02:30)
[2020-06-29] MEDS: MoRPHine SULFATE 4 MG/ML 1 ML CARP\\VIAL IV PRN ×2 (02:46→05:48)
[2020-06-29] MEDS ORDERED: MULTIVITAMIN TAB PO SCH (09:00)
--- NOTE | 2020-06-29 09:54 | Operative Report ---
PG Post Operative Report Pre & Post Diagnosis Operation Date: 06/28/20 21:30 Pre-Op Diagnosis: LEFT BREAST SWELLING,BLEEDING Post-Op Diagnosis: LEFT BREAST SWELLING,BLEEDING I identified the patient and participated in the time-out.: Yes Procedure Operation Date: 06/28/20 21:30 Actual Procedures p Evacuation Hematoma of Left Breast(Left) - Ruby Patricio MD Surgeon Ruby Patricio MD Director Of Medical Staff Services Ava Vazquez PA-C Estimated Blood Loss 200 (120cc hematoma) Findings Consistent with Post-Op Diagnosis 120 cc clot, generalized oozing and tissue infiltration without a single dominant active bleeder Specimens none Drains carlitos left breast Anesthesia Type General Complications none Disposition Disposition: Recovery Room Indications She is a 30-year-old female, who contacted the answering service about 6 hours status post bilateral reduction mammoplasty, with complaints of worsening left breast pain and rapid swelling, with increased drainage from the left breast CARLITOS drain. She was evaluated in the emergency department, noted to have hematoma of the left breast. To acute onset and rapid swelling, elected to proceed to the operating room for evacuation of the hematoma and wound exploration. Description of Procedure Risks, benefits, alternatives of procedure explained the patient who agreed and signed consent. She was marked in the emergency department prior to coming to the operating room, identified, placed under general anesthesia without incident. PECs block had been utilized earlier in the day. Surgical site was prepped and draped sterilely. A timeout procedure was performed. Dermabond was removed sutures were removed, wound was reopened widely. 120 cc of clot was evacuated from the mostly lateral aspect of the left breast. Tissue was noted to be infiltrated and stained with blood. Nipple areolar complex was viable. Wound was copiously irrigated with both normal saline and bacitracin irrigation. There was noted to be some generalized oozing from the pectoralis muscle on the left side, at the site of fibroadenoma removal. Several small minor oozing areas were identified throughout the breast and were cauterized. There was no significantly identifiable bleeder. Pectoralis muscle was just generally oozing without rapid bleeding and I utilized Surgicel, Gelfoam and thrombin, FloSeal in an attempt to achieve hemostasis. FloSeal appeared to be successful until I attempted wound closure, at which point bloody drainage was again noted in the lateral aspect of the breast. I then tried Sakshi powder, which again seem to be temporarily successful but on attempted closure began to bleed again. 18 [place] CARLITOS drain was placed through previous CARLITOS wound. Ultimately, I closed the vertical limb and medial aspect of the breast after insetting the nipple using 2-0 Vicryl deep dermal sutures, 3-0 PDS interrupted superficial dermal sutures around the nipple areolar complex and vertical limb. Lateral aspect still appeared to be oozing, and Tisseel was utilized in the wound bed, followed by manual pressure to promote tissue adherence. Remainder of the wound was closed in layers using 2-0 Vicryl deep dermal sutures, 2 oh PDO running Quill suture, 3-0 Monocryl running subcuticular suture. Dermabond Prineo was applied. CARILTOS drain was sutured into place using 3-0 nylon suture. Dry dressings and a fresh surgical bra were applied. EBL in total including hematoma evacuation and blood and CARLITOS drain at the time of surgery was 200 cc. Ava Vazquez PA-C was present and scrubbed throughout the entire procedure, was instrumental in assisting with retraction and hemostasis, simultaneous wound closure I attest to the content of the Intraoperative Record and any orders documented therein. Any exceptions are noted below.
--- NOTE | 2020-06-29 10:05 | Surgery Progress Note ---
Date of Service June 29, 2020 Assessment & Plan (1) Hematoma: Admission and Anticipated Discharge Date Admission Date: June 28, 2020 Patient doing well, no evidence of active bleeding. Will d/c home on keflex with office follow-up tomorrow. Subjective POD#1 bilateral breast reduction, with return to OR for evacuation of left breast hematoma. Patient reports feeling much better this AM. She is anxious to go home. Pain in controlled and patient tolerating regular diet. Right drain with 5 cc, left drain with 30 cc. VSS Physical Exam Physical Exam: bilateral breasts with incisions CDI, nipples viable, no significant difference in size between left and right breast. right drain with scant bloody output- removed. left drain with appropriate serosang/bloody output. no concern for active bleeding. Results & Data ([facility]) Vital Signs (Past 12 Hours) Vital Signs Temp Pulse Resp BP Pulse Ox 06/29/20 07:12 36.7 C 74 18 103/54 L 99 06/29/20 04:55 36.6 C 73 14 100/52 L 98 06/29/20 04:09 36.8 C 97 H 14 109/56 L 98 06/29/20 02:50 36.6 C 79 14 117/69 99 06/29/20 02:35 36.4 C L 63 14 126/63 99 06/29/20 01:45 36.5 C 82 14 118/65 98 06/29/20 01:15 65 16 126/71 98 06/29/20 01:00 65 17 131/69 97 06/29/20 00:45 64 17 126/73 100 06/29/20 00:35 82 19 153/87 H 100 06/29/20 00:30 103 H 24 142/78 H 100 06/29/20 00:25 36.6 C 94 H 23 144/77 H 100 PG Care Time/CCT Total # of Minutes Spent Total Time Spent with Patient: Total time spent is greater than 50% in coordination of care (as documented) at patient's floor/unit and/or counseling patient: Coding Level of Care Code None Diagnoses Hematoma T14.8XXA
--- NOTE | 2020-06-29 11:55 | Discharge Summary ---
Date of Service June 29, 2020 Admission HPI Per Admitting Provider Yanelis contacted the answering service this evening with a complaint of rapidly enlarging left breast, increased drainage and pain from the left breast, and lightheadedness. She is about 7 hours status post bilateral reduction mammoplasty. She was seen by Tammy at the time of discharge, noted to have viable nipple areolar complexes. Admission Exam Per Admitting Provider Please see admission H & P. Principal Diagnosis Left breast hematoma Discharge Data Allergies Allergy/AdvReac Type Severity Reaction Status Date / Time nut - unspecified Allergy Severe ANAPHYLAXIS Verified 06/28/20 06:20 shellfish derived Allergy Severe ANAPHYLAXIS Verified 06/28/20 06:20 animal dander Allergy Mild itchy eyes Verified 06/28/20 06:20 pollen extracts Allergy Mild itchy eyes Verified 06/28/20 06:20 ragweed pollen Allergy Mild itchy eyes Verified 06/28/20 06:20 Consultations 06/28/20 19:09 ED Decision to Admit Stat Procedures Performed Operation Date: 06/28/20 21:30 Actual Procedures p Evacuation Hematoma of Left Breast(Left) - Ruby Patricio MD Hospital Course (1) Hematoma: Yanelis is a 30-year-old female with symptomatic breast hypertrophy. She was taken to the OR and underwent Bilateral Breast Reduction. There were no intraoperative complications. She was taken to the PACU and then finally same day surgery, where she recovered well. Prior to discharge I was able to examine patient. Vital signs were stable. Bilateral SHELLEY drains were in place with less than 20 cc of drainage. Bilateral nipples were viable and with sensation. There was no evidence of bruising or swelling on either breast. Her pain was well-controlled. I was able to review discharge instructions with patient. She had no further questions. She was discharged home with instructions to follow- up in office tomorrow. At approximately 6 PM, Yanelis contacted our answering service to report that her left breast was "rapidly enlarging." She also reported increased drainage, pain from left breast, and lightheadedness. She was instructed to come to the ED for evaluation. She was taken back to the operating room for evacuation of hematoma of left breast. There were no intraoperative complications. She was taken to recovery and transferred to med/surg for observation. POD #1- Patient was seen and evaluated by Ava Vazquez. Per surgical progress note, "patient reports feeling much better this AM." Her pain was controlled and denied nausea. Her right breast SHELLEY drain was removed at bedside. Left SHELLEY drain had approximately 30 cc of drainage and remained in place at discharge. No concern for active bleeding appreciated on physical exam. Yanelis was discharged home with Keflex prescription. She will follow-up in our office tomorrow. Total Time Total Time Spent Total Time Spent (In Minutes): 10 Discharge Plan Discharge Items Patient Disposition: Home - Self-Care Reason For Visit: EVAC. OF HEMATOMA S/P BREAST REDUCTION Discharge Diagnosis: s/p evacuation hematoma left breast, s/p bilateral breast reduction Activity: As commented below Non-emergency contact: Surgeon Call non-emergency contact if: your symptoms worsen, your pain is worsening, you have a fever and your wound has increased drainage Follow-up/Referrals: Ruby Patricio MD [Physician] - 06/30/20 9:00 am Alden Crowder [Primary Care Provider] - Diet: Regular Addtl Attending Provider Instructions: ACTIVITY RECOMMENDATIONS: __Normal activities _x_No bending, lifting or straining __No driving __Driving allowed when you are off pain medications _x_Walking permitted __You should have help at home for ___ days DRESSINGS: __No dressings required _x_Keep dressings dry/in place until first office visit __Remove dressings ___ and leave dressings off __Apply ice ___ days __Remove dressings and reapply garment __Apply antibiotic ointment (Bacitracin, Neosporin, etc) to wounds 3-4 times/day for 10 days BATHING: _x_Keep dressings dry __xSponge bathing permitted __Showering permitted _x_No swimming, hot tubs or soaking in a tub MEDICATIONS: Resume previous medications unless instructed otherwise by your surgeon. _x_Do not use aspirin, Motrin, Advil or Ibuprofen as these may promote bleeding. Please use Tylenol. _x_Prescription(s) provided: tramadol for pain, and zofran for nausea, were sent to your pharmacy yesterday OTHER INSTRUCTIONS: _x_Record drain output 2-3 times per day SPECIAL CARE INSTRUCTIONS: * It is normal to have a mild fever after surgery. If your temperature is higher than 101.5 degrees F, please call the office at [phone]. * Constipation is a typical side effect of pain medication. An [id number] stool softener will help relieve this. * Leaking around surgical drains may occur and should not cause concern. Sometimes these drains become clogged. If this happens, remove the bulb and milk the clot out of the tube, then replace the bulb. * Drainage from wounds after liposuction is normal and should be expected. Garments will become soiled. You should protect furniture and bedding. This drainage should mostly subside within 2-3 days. Leave garments in place unless instructed to remove them. * If you have unusual drainage from a wound or are concerned you have an infection or have any questions or concerns, please call the office at [phone]. FOLLOW UP VISIT: If not already scheduled, please call the office, , when you return home after surgery to schedule an appointment to be seen in _1__ days. Pending Studies at Discharge: Yes Visit Report Forms: Smoking Cessation Stand-Alone Forms: [facility], Opioid Pain Management, Work/School Release (Inpt), Smoking Cessation Medications and DC Order Prescriptions: New cephalexin [Keflex] 500 mg capsule 500 mg PO TID 7 Days Qty: 21 RF: 0 Continued tramadol 100 mg tablet 100 mg PO Q6H PRN (Reason: pain) Qty: 14 RF: 0 ondansetron HCl [Zofran] 4 mg tablet 4 mg PO Q6H PRN (Reason: nausea and vomiting) 3 Days Qty: 12 RF: 0 Discharge Orders: Discharge Order (Routine); Ordered 06/29/20 Ordered By: Ava West/Other Patient Handouts: Discharge Instructions Caring for ... Admission Data Admit Date/Time: 06/28/20 23:44 Attending Provider: Ruby Patricio Admit Provider: Ruby Patricio Primary Care Provider: Alden Crowder Other Providers: Ruby Patricio Other Interventions: Discharge Summary Assessment (RN) Last Done: 06/29/20 11:14 Coding Level of Care Code 64951 OBS Care - Discharge Diagnoses Hematoma T14.8XXA
--- NOTE | 2020-07-07 07:57 | Coding Query ---
CODING QUERY To promote full compliance with coding requirements relating to patient care, provider participation is requested in all cases of mate first uncertainty. Please assist us with the question(s) below: Coding Question(s): Clarification is needed: Can you please clarify if an incision was made to evacuate the breast hematoma: Physician's Response(s): ( ) Incision was made to evacuate hematoma ( ) Incision was not made to evacuate hematoma ( x ) Other - Please clarify entire wound was reopened by removing all sutures to previous wound. No new incisions were made Thank you Antonina Wing Principal Diagnosis: "that condition established after study, to be chiefly responsible for occasioning the admission of the patient to the hospital for care." Co-Existing Principal Diagnosis: "when two or more diagnoses equally meet the criteria for principal diagnosis as determined by the circumstances of admission, diagnostic work up, and/or therapy provided, and the Alphabetic Index, Tabular List, or another coding guideline does not provide sequencing direction, any one of the diagnoses may be sequenced first." "When the physician has documented what appears to be a current diagnosis in the body of the record, but has not included the diagnosis in the final diagnostic statement, the physician should be asked whether the diagnosis should be added." (Source [facility]oding [facility] 2 QTR90. p3-4) CRISTINA
--- NOTE | 2020-07-15 13:56 | Coding Query ---
CODING QUERY To promote full compliance with coding requirements relating to patient care, provider participation is requested in all cases of mall plant caretaker uncertainty. Please assist us with the question(s) below: Coding Question(s): Please clarify the length of the wound closure performed: Physician's Response(s): 30____ CM Thank you Antonina Valentinecristian Maciej Principal Diagnosis: "that condition established after study, to be chiefly responsible for occasioning the admission of the patient to the hospital for care." Co-Existing Principal Diagnosis: "when two or more diagnoses equally meet the criteria for principal diagnosis as determined by the circumstances of admission, diagnostic work up, and/or therapy provided, and the Alphabetic Index, Tabular List, or another coding guideline does not provide sequencing direction, any one of the diagnoses may be sequenced first." "When the physician has documented what appears to be a current diagnosis in the body of the record, but has not included the diagnosis in the final diagnostic statement, the physician should be asked whether the diagnosis should be added." (Source Coding [facility] 2 QTR90. p3-4) CRISTINA
== END 2020-06-29 11:49 | disposition home or self-care (01) ==
LOC: ED 18:40 → 3W 20:21 → OR 20:21